=== PATIENT | male | born 1975 | race Caucasian/White ===

== ENCOUNTER 2018-02-27 10:52 | Day surgery (SDC) | payer OTHER, SELFPAY ==
[2018-02-19 09:26] VITALS: BP 133/76; PULSE 74; RESP 16; TEMP 36.7; O2SAT 96; BMI 27.4
--- NOTE | 2018-02-19 09:33 | EKG12_ITS ---
Test Reason : Blood Pressure : / mmHG Vent. Rate : 068 BPM Atrial Rate : 068 BPM P-R Int : 122 ms QRS Dur : 078 ms QT Int : 404 ms P-R-T Axes : 010 001 021 degrees QTc Int : 429 ms Normal sinus rhythm Normal ECG No previous ECGs available Confirmed by CORNEL SOLANO ([id number]), research editor PUMA SALGADO ([id number]) on 02/24/2018 2:52:39 PM Referred By: Lito Galo Confirmed By:CORNEL SOLANO
[2018-02-19 09:56] LABS: Absolute Lymphocyte Count 2.82 X10^3/ul (0.83-4.51); Absolute Neutrophil Count 3.2 X10^3/uL (2.0-7.7); Basophil# 0.02 X10^3/uL; Basophil% 0.3 % (0-1); Eosinophil# 0.07 X10^3/uL; Eosinophils% 1.1 % (0-5); Hematocrit 42.6 % (40-54); Hemoglobin 14.3 g/dl (13.0-16.5); Lymphocyte # 2.82 X10^3/ul (4.0); Lymphocyte % 43.7 % (19-41); Mean Corp Hgb Conc 33.6 g/gl (32-36); Mean Corpuscular Hgb 29.9 pg (27.0-32.0); Mean Corpuscular Volume 88.9 fL (80-94); Mean Platelet Vol. 10.3 fl (6.2-12.0); Monocyte# 0.37 X10^3/uL; Monocyte% 5.7 % (0-10); Neutrophil # 3.17 X10^3/uL (2.7-7.7); Neutrophil % 49.2 % (47-70); Platelet Count 199 K/mm3 (150-450); RBC Distribution Width CV 12.8 % (11.6-14.6); RBC Distribution Width SD 41.1 fl (35.1-43.9); Red Blood Count 4.79 M/mm3 (4.6-6.2); White Blood Count 6.5 K/mm3 (4.4-11.0)
[2018-02-19 10:01] LABS: POSITIVE COUNT NO; POSITIVE DIFFERENTIAL NO; POSITIVE MORPHOLOGY NO
[2018-02-27] VITALS (7 sets, daily range): BP systolic 108–134; BP diastolic 56–88; PULSE 53–77; RESP 16–18; TEMP 36.3–36.6; O2SAT 96–99; BMI 27.4
--- NOTE | 2018-02-27 | BLB_PTH ---
PATIENT: JAYSON GONZÁLES LOC: [facility] [place] U#:[id number] AGE/SX: 43/M ROOM: RE02/27/[address]: Dr. Lito Galo MD : 1975 BED: DIS: 02/27/2018 SPEC #: [id number] RECD: 02/27/18 14:53 STATUS: MARLYN JOSSELIN #: [id number] JOEY: 02/27/18 00:[address]: Lito Galo DEPT: SURGICAL PATHOLOGY RECD BY: Gideon Prescott ENTERED: 02/27/18 14:53 SP TYPE: TURB OTHR DR: Mary Delaney, GARNISHER-C Tissues: Urinary bladder, NOS Procedures: Surgery Specimen Level V HEADER OPERATION: Cysto, TUR bladder, Olympus PRE-OP DIAGNOSIS: Bladder cancer TISSUE SUBMITTED: Bladder tumor MICROSCOPIC DIAGNOSIS Bladder tumor, TUR: Papillary urothelial carcinoma. See cancer summary below. BLADDER CANCER (TUR) SUMMARY: Procedure - TURBT Histologic type ? urothelial (transitional cell) carcinoma Associated epithelial lesions ? none identified Histologic grade - urothelial carcinoma (WHO 2004/ISUP) - low grade (1/3) Tumor configuration - papillary Adequacy of material for determining muscularis propria invasion - muscularis propria (detrusor muscle) is not identified. Lymph-Vascular invasion - not identified Microscopic extent of tumor ? noninvasive papillary carcinoma Additional pathologic findings ? chronic inflammation. The above summary is in compliance with [employer] [place] [employer] (CAP) Cancer Protocols Checklist and [place] Joint Committee on Cancer (AJCC), Staging Manual, 8th Ed. JOCE:melvin 03/02/18 MICROSCOPIC DESCRIPTION Slides are reviewed. GROSS DESCRIPTION Received in fixative is one container labeled with the patient's name and designated bladder tumor. The specimen consists of multiple irregular fragments of light patel soft tissue that in aggregate measure 2.5 x 0.7 x 0.1 cm. The specimen is totally submitted in one cassette. / JOCE:melvin 02/27/18 TC:0 CPT: 64793
[2018-02-27] MEDS: Cefazolin 2 GM in 0.9% Normal Saline 100 ML IV (13:17)
--- NOTE | 2018-02-27 13:49 | PCM.DC.URO ---
Discharge Diet: Light diet - advance as tolerated Discharge Activity: Return to Normal Activity Call your doctor if your incision/area has: Continuous Slow Oozing, Sudden Increased Bleeding, Increased Pain/ Swelling, Increased Redness Suture Line Care: Avoid Pulling/Pushing, Avoid Pinching/Bending Allergies/Adverse Reactions: Allergies midazolam HCl [From Versed] Allergy (Verified 02/19/18 09:11) Unknown Medications to take at Discharge Ciprofloxacin [Cipro] 500 mg PO BID #6 tab 02/27/18 Hydrocodone/Acetaminophen [[place] 5-325 Tablet] 1 ea PO Q4H PRN PRN 5 Days #14 tab 02/27/18 The following prescriptions were given: Hydrocodone/Acetaminophen [[place] 5-325 Tablet] 1 ea PO Q4H PRN PRN 5 Days #14 tab PRN Reason: Pain Ciprofloxacin [Cipro] 500 mg PO BID #6 tab Primary Care Physician: Mary Delaney NP-C [Primary Care Provider] - Please Follow Up With: Lito Galo MD When: March 12 at 10:30 am
--- NOTE | 2018-02-27 13:50 | PCM.OPRPT ---
Report of Operation Date of Procedure: 02/27/18 Pre-Operative Diagnosis: Bladder cancer, large lateral wall, 2.5 cm Post-Operative Diagnosis: Same Surgery/Procedure Performed:: Transurethral resection of medium-sized bladder tumor, instillation of mitomycin-C Description of Surgical Findings:: 43-year-old male taken back to the operating room after smooth induction of general anesthesia he was placed supine on the table penis and testicles were prepped and draped in usual sterile fashion. Went into the bladder with a 21 [place] 30? lens and also 70? lenses a complete inspection of the bladder with both the lenses identified a tumor on the lateral wall the bladder on the left lateral wall right above the left ureteral orifice. I then switched over to the [address] [place] noncontinuous flow resectoscope and used bipolar cautery to resect this tumor he did require succinylcholine for neuromuscular blockade during resection to avoid a reflux in the non acoustic operator nerve. After resecting the tumor completely appear to be noninvasive I then cauterized the base extensively the ureteral orifice was not involved both orifices were clear Ellik out the tumor and handed off as specimen then placed the catheter in the bladder and instilled 50 cc of mitomycin-C into the bladder. Patient's anesthetic was reversed taken back to PACU in good condition and to see him back in a few weeks. Type of Anesthesia:: General Drains: none - Admit VTE Documentation VTE Present on Admission: No VTE Mechan Device Prophylaxis: SCD's VTE Pharm Prophylaxis ordered?: No Reason prophylaxis not ordered:: Treatment Not Indicated
== END 2018-02-27 15:08 | disposition home or self-care (01) ==
LOC: SDC 10:53 → AC 10:54
PROVIDERS: Anesthesiology; Family Provider Nurse Practitioner Primary Care; PCP Nurse Practitioner Primary Care; Visit Provider Urology
PROC: 0TBB8ZZ Excision of Bladder, Via Natural or Artificial Opening Endoscopic (ICD-10-PCS; CPT 51720; principal; 2018-02-27 12:55)
DX: C67.2 Malignant neoplasm of lateral wall of bladder (principal); F32.9 Major depressive disorder, single episode, unspecified; F41.9 Anxiety disorder, unspecified; F17.210 Nicotine dependence, cigarettes, uncomplicated; Z87.442 Personal history of urinary calculi
CPT/HCPCS: 00912; 51720; 52235; 85025; 88307; J7120; J2405; J3490; J9280

== ENCOUNTER 2018-03-08 00:09 | Emergency (ER) | payer OTHER, SELFPAY ==
[2018-03-08 00:10] VITALS: BP 134/78; PULSE 89; RESP 16; TEMP 36.9; O2SAT 99; BMI 27.0
--- NOTE | 2018-03-08 00:26 | ED.VISSUMM ---
- ER Visit Summary Date of Service: 03/08/18 Chief Complaint: Pain with urination History of Present Illness: The patient is a 43 M 1 week ago had a cystoscopy done by Dr. Carlos alcala of urology. They incidentally found a bladder cancer which they removed. He has had chemo washings of his bladder. States the first few days he had blood some pain but is done much better. Today he had pain with urination but did not notice any blood. He said the pains as bad as it was the day after surgery. He denies any fever. He is able to urinate but states that he does not feel like he is emptying his bladder. He had none of these symptoms previously. He denies any fever or vomiting. Physical Examination: Well-appearing middle-age male. Vital signs are stable afebrile. No distress. H EENT exam unremarkable. Lungs clear to auscultation. Heart regular rhythm no murmur. Abdomen is soft minimal suprapubic tenderness. No masses. No hernias. External exam is unremarkable. Circumcised male. No gross blood. No penile or scrotal or testicular tenderness or masses. No swelling. Moving all 4 extremities. No edema. No back pain. No CVA tenderness. Neurologically is awake and alert. Test Results: Urinalysis shows greater than or red blood cells but otherwise unremarkable with no nitrates or bacteria no signs of infection. After he urinated his post void residual was only 28 cc. He stated that it hurt more to stop pain and it actually did to void. Emergency Department Course and Treatment: Repeat exam he is doing well at 15 and will be discharged home. I will write him for Pyridium and to follow-up with Dr. Galo. Patient was placed on Pyridium for possible bladder spasms. Treatment Plan: Pyridium as needed. Disposition: Discharge Impression: Acute dysuria Status post cystoscopy and bladder cancer resection This note was generated with Sellaround dictation software. It may contain incorrect words, spelling, and punctuation that were not noted in review of the chart prior to signing ED Disposition - Plan for ED Patient: Chief Complaint: Complaint Referrals: Mary Delaney, ADEEL-C [Primary Care Provider] -
[2018-03-08 00:45] LABS: Bacteria 0 SEEN /hpf (None Seen); Mucous, Urine 0 SEEN /hpf (<or=2+); Squamous Epithelial Cells - UA 0 SEEN /hpf (0-5)
[2018-03-08 00:46] LABS: Color, Urine Yellow (Yellow); Glucose, Dipstick Normal (Normal); Ketone-Dipstick Negative (Negative); Leukocyte Esterase-Dipstick 100 /ul (Negative); Nitrite-Dipstick Negative (Negative); Occult Blood-Urine 250 /ul (Negative); Protein-Dipstick 100 mg/dl (Negative); Specific Gravity, Urine 1.025 (1.002-1.030); Urine Bilirubin Dipstick Negative (Negative); Urine Clarity Sl. Cloudy (Clear); Urine Urobilinogen 1 mg/dl (Normal)
[2018-03-08 00:56] LABS: White Blood Cells 0-5 SEEN /hpf (0-5)
[2018-03-08 00:57] LABS: Red Blood Cells-Urine > 100 SEEN /hpf (0-5)
--- NOTE | 2018-03-08 01:18 | ED.DEP ---
ED Disposition - Plan for ED Patient: Disposition: Home or Assisted Living Chief Complaint: Complaint Prescriptions: Phenazopyridine HCl [Pyridium] 200 mg PO TID PRN PRN #15 tab PRN Reason: Bladder Spasms Referrals: Lito Galo MD [STAFF PHYSICIAN] - As soon as possible Additional Instructions: Plenty of water. Pyridium as needed for bladder spasms Call follow-up with Dr. Burciaga. There are no signs of urinary tract infection. Or urinary retention.
[2018-03-08] MEDS: Phenazopyridine 95 MG Tablet 190 MG PO (01:27)
[2018-03-08 01:29] VITALS: RESP 16
== END 2018-03-08 01:29 | disposition home or self-care (01) ==
PROVIDERS: Emergency Provider Emergency Medicine; Family Provider Nurse Practitioner Primary Care; PCP Nurse Practitioner Primary Care
DX: R30.0 Dysuria (principal); R19.7 Diarrhea, unspecified; Z85.51 Personal history of malignant neoplasm of bladder; Z72.0 Tobacco use
CPT/HCPCS: 81001; 99283

== ENCOUNTER → 2019-07-26 08:46 | Outpatient (CLI) | payer BC, SELFPAY ==
--- NOTE | 2019-07-26 08:50 | US_ITS ---
STUDY: SOFT TISSUED OF THE NECK ULTRASOUND REASON FOR EXAM: Male, 44 years old. Cervical lymphadenopathy TECHNIQUE: Ultrasound evaluation of the soft tissue neck was performed with real-time and static elmore-scale imaging. COMPARISON: None. FINDINGS: There are right-sided submandibular nodes with the largest measuring 2.4 x 1.9 cm. There are left-sided submandibular nodes with the largest measuring 2.4 x 1.5 cm. There is no fluid collection identified. US/Head/Neck Soft Tissue IMPRESSION: Bilateral submandibular lymphadenopathy. Further evaluation with CT is recommended. Electronically Signed: Anson Sung, at 17:08 EDT Tel , Service support ,
--- NOTE | 2019-07-26 09:20 | RAD_ITS ---
STUDY: X-RAY - ESOPHAGUS (BARIUM SWALLOW) WITH FLUOROSCOPY REASON FOR EXAM: Male, 44 years old. Dysphasia. Tightness. TECHNIQUE: 12 view(s) of the esophagus were obtained following swallowing of barium. FLUOROSCOPY TIME (if supplied): (0:26) minutes/seconds COMPARISON: None. FINDINGS: There is no demonstrated esophageal foreign body. There is no demonstrated stricture or mucosal abnormality. Normal gastroesophageal junction, without a demonstrated hiatal hernia. The patient ingest a 12 mm tablet of barium without any difficulty. Normal visualized aortic arch and descending thoracic aorta. Normal visualized pulmonary parenchyma. Normal visualized osseous structures of the thorax. RAD/Esophagus Only IMPRESSION: Normal plain film x-ray examination (barium swallow) of the esophagus. Electronically Signed: Hector Ann, at 9:27 EDT , Service support ,
== END ==
PROVIDERS: Family Provider Nurse Practitioner Primary Care; PCP Nurse Practitioner Primary Care; Referring Provider Otolaryngology; Visit Provider Otolaryngology
DX: R13.10 Dysphagia, unspecified (principal); R59.0 Localized enlarged lymph nodes
CPT/HCPCS: 74220; 76536

== ENCOUNTER 2019-08-06 08:49 | Day surgery (SDC) | payer BC, SELFPAY ==
--- NOTE | 2019-08-06 | IMM_PTH ---
PATIENT: JAYSON GONZÁLES LOC: [facility] [place] U#:[id number] AGE/SX: 44/M ROOM: RE08/06/[address]: Dr. Jeffery Zavala MD : 1975 BED: DIS: 08/06/2019 SPEC #: [id number] RECD: 08/09/19 11:42 STATUS: MARLYN REQ #: [id number] JOEY: 08/06/19 00:[address]: Jeffery Zavala DEPT: IMMUNOHISTOCHEMISTRY RECD BY: Anna Neumann ENTERED: 08/09/19 11:45 SP TYPE: IMMUNO OTHR DR: Mary Delaney, CODING TECHNICIAN-C Tissues: Lymph node of neck, NOS Procedures: BCL-2 (add) BCL-6 (add) CD10 (add) CD20 (add) CD23 (add) CD43 (add) CD45 (add) CD5 (add) CD79A (add) CYCLIN (add) KI-67 (add) CD3 (initial) PHYSICIAN & [address] [address] SPECIMEN INFORMATION: Tissue Source: Cervical lymph node Clinical Info: Cervical lymphadenopathy; dysphagia Specimen Number: [id number] #2 CPT code: 69438, 28446 x11 METHODOLOGY: Deparaffinized sections of prefer/formalin-fixed tissue or PAP/DQ stained slides are incubated with monoclonal/polyclonal antibodies/oligonucleotide probes. Localization is made via biotin free immunoperoxidase method. Appropriate controls are performed and reacted as expected. Results on target cell population are indicated in the following table: RESULTS: ANTIBODY / CLONE RESULT Block 2 CD3 (PS1) positive CD5 (SP10) positive CD20 (L26) positive CD79a (11E3) positive CD45 (RP2/18) positive BCL-2 (bcl-2/100/D5) positive ([facility] B-cell negative) CD23 (1B12) positive, focal CD10 (56C6) negative ([facility] B-cell positive) CD43 (L60) positive BCL-6 (VY558I/A8) negative ([facility] B-cell positive) Cyclin D1/BCL-1 (SP4) negative Ki-67 (30-9) positive, low (20-25%) These tests were developed and their performance characteristics determined by [facility]. They may not have been cleared or approved by the U.S. Food and Drug Administration. The FDA has determined that such clearance or approval is not necessary. The above immunohistochemical/dualISH markers are ordered and reviewed by the Pathologist. INTERPRETATION: Cervical lymph node, biopsy: Lymph node with paracortical hyperplasia with expansion of B-cells, favor atypical reactive process. This case is sent to [facility] for expert opinion and reviewed by Dr. Lundy and above diagnosis is rendered. This case has been reviewed in consultation with Dr. Garcia who concurs with the above diagnosis. SJ:melvin 08/17/19
--- NOTE | 2019-08-06 | LYMN_PTH ---
PATIENT: JAYSON GONZÁLES LOC: [facility] [place] U#:[id number] AGE/SX: 44/M ROOM: RE08/06/[address]: Dr. Jeffery Zavala MD : 1975 BED: DIS: 08/06/2019 SPEC #: [id number] RECD: 08/06/19 11:40 STATUS: MARLYN JOSSELIN #: [id number] JOEY: 08/06/19 00:[address]: Jeffery Zavala DEPT: SURGICAL PATHOLOGY RECD BY: Anna Neumann ENTERED: 08/06/19 12:13 SP TYPE: LYMPH NODE OTHR DR: Mary Delaney, NUTTER UP-C Tissues: LYMPH NODE BIOPSY Procedures: Frozen Section (charge) Surgery Specimen Level IV HEADER OPERATION: Radical neck biopsy excision lymph nodes, open deep cervical nodes, frozen PRE-OP DIAGNOSIS: Cervical lymphadenopathy; dysphagia TISSUE SUBMITTED: Cervical lymph node FROZEN SECTION DIAGNOSIS Cervical lymph node: Lymph node tissue. Negative for metastatic carcinoma. SJ:melvin 08/06/19 Case has been reviewed in consultation with Dr. Garcia who concurs with the above diagnosis. IDC:AM MICROSCOPIC DIAGNOSIS Cervical lymph node, biopsy: Lymph node with paracortical hyperplasia with expansion of B-cells, favor atypical reactive process. Flow cytometry study from [facility] shows no phenotypic evidence of non-Hodgkin lymphoma. See comment. SJ:melvin 08/17/19 COMMENT Immunohistochemistry ([id number]) supports the above diagnosis. [facility] expert opinion and reviewed by Dr. Lundy and above diagnosis is rendered. The complete consultation and flow cytometry report from [facility] is viewable in patient's EMR. Correlation with clinical findings and appropriate follow up are necessary. Case has been reviewed in consultation with Dr. Garcia who concurs with the above diagnosis. IDC:AM MICROSCOPIC DESCRIPTION Slides are reviewed. GROSS DESCRIPTION Received fresh for frozen section diagnosis labeled with the patient's name is a specimen designated cervical lymph node. The specimen consists of an ovoid to slightly regular piece of patel soft tissue consistent with lymph node measuring 3 x 2 x 0.7 cm. The specimen is bisected. One-half of the specimen is submitted for frozen section diagnosis. Four touch imprints are prepared, two stained with Diff-Quik and two stained with H & E. A section is submitted for flow cytometry study. The entire specimen is submitted in two cassettes as follows: 1 - frozen section, 2 - rest of the specimen. / JOCE:melvin 08/06/19 TC:5 CPT: 78936, 79390
[2019-08-06 09:09] VITALS: BP 121/85; PULSE 69; RESP 16; TEMP 36.3; O2SAT 99; BMI 26.9
[2019-08-06] MEDS: Lactated Ringers 1,000 ML 100 ML IV (09:16)
--- NOTE | 2019-08-06 11:52 | OP.PCM_ITS ---
Problem List (1) Anterior cervical lymphadenopathy Status: Acute Report of Operation Date of Procedure: 08/06/19 Pre-Operative Diagnosis: Enlarged cervical lymph nodes, dysphagia, h/o bladder CA Post-Operative Diagnosis: Same Surgery/Procedure Performed:: Biopsy deep cervical lymph node left Description of Surgical Findings:: Bairon is a 44-year-old male with a history of bladder cancer and complaints of dysphagia who was found clinically to have bilateral cervical lymphadenopathy. Given his history pain complaints and these findings biopsy was advised for definitive evaluation and he was agreeable to proceed. The risks, alternatives, potential complications, and benefits were discussed at length and any questions answered to the patient and/or caregiver's satisfaction. Witnessed informed consent was obtained in the office, and the patient and/or caregiver was agreeable to proceed. Procedure went as follows: The patient was identified in preoperative holding and brought to the operating room where he was placed under general anesthesia and intubated. When appropriate anesthesia was obtained, the left neck was prepped and draped in usual sterile fashion. The planned incision site was then injected with 1% lidocaine with 100,000 epinephrine for a total of 2 cc. After allowing for vasoconstriction, a skin incision 2 fingerbreadths below the angle of the mandible was then created to 15 blade scalpel through the skin subcutaneous tissues and platysma. Dissection was then carried out along the sternocleidomastoid where overlying the vascular sheath was noted to be a large firm lymph node approximately 2 x 3 cm in size. This was matted to the surrounding tissue and was dissected free using bipolar cautery for hemostasis. This was then sent for pathologic specimen. The wound was then closed deeply with interrupted 3-0 Vicryl sutures closing the space and reapproximating the platysma and subcutaneous tissues. A running 5-0 Monocryl subcuticular sti tch was then placed to close the skin followed by Cavilon and Steri-Strips. The patient was then returned to anesthesia where he was revived and extubated without complication having tolerated the procedure well. Type of Anesthesia:: General Anesthesiologist: Saurabh Hernanedz Special Medications: none Specimen's removed: left cervical lymph node Drains: none Estimated Blood Loss (mL): 0 mL Fluids Replaced: 800 mL Grafts/Implants Used: none - Complications none - Admit VTE Documentation VTE Present on Admission: No VTE Mechan Device Prophylaxis: SCD's VTE Pharm Prophylaxis ordered?: No
--- NOTE | 2019-08-06 12:01 | PCM.DC ---
- Discharge Diagnoses Current Active Problems: Current Active and Chronic Problems Anterior cervical lymphadenopathy (Acute) You will use the following diet at home:: No restrictions Discharge Activity: Return to Normal Activity Call your doctor if your incision/area has: Increased Pain/ Swelling, Swelling at the incision site Call your doctor if you observe: Fever of 101 or Higher, Uncontrolled pain Allergies/Adverse Reactions: Allergies midazolam HCl [From Versed] Allergy (Verified 08/06/19 09:06) Unknown steroid Adverse Reaction (Uncoded 08/06/19 09:06) oral steroids/anxious and upset Medications to take at Discharge Fluticasone 0.05% [Flonase Nasal [place]] 1 spray NASAL DAILY 08/02/19 Paroxetine HCl [Paxil] 10 mg PO BID 08/02/19 Primary Care Physician: Mary Delaney NP-C [Primary Care Provider] - Test Results: Test results from this visit will be discussed in further detail at your follow-up appointment, if applicable. Please Follow Up With: Jeffery Zavala MD When: 2 weeks
[2019-08-06 12:03] VITALS: BP 121/85; BP 123/77; PULSE 80; RESP 16; TEMP 36.4; O2SAT 95
[2019-08-06 12:15] VITALS: BP 121/85; BP 99/68; PULSE 76; RESP 16; O2SAT 95
[2019-08-06 12:25] VITALS: BP 111/79; BP 121/85; PULSE 79; RESP 16; O2SAT 99
[2019-08-06 12:31] VITALS: BP 121/85; BP 97/81; PULSE 74; RESP 16; TEMP 36.3; O2SAT 100
[2019-08-06 12:52] VITALS: BP 121/85
== END 2019-08-06 12:54 | disposition home or self-care (01) ==
LOC: SDC 08:50 → AC 08:50
PROVIDERS: Family Provider Nurse Practitioner Primary Care; PCP Nurse Practitioner Primary Care; Referring Provider Otolaryngology; Visit Provider Otolaryngology
PROC: (CPT 38724; principal; 2019-08-06 10:00)
DX: R59.0 Localized enlarged lymph nodes (principal); J31.0 Chronic rhinitis; R13.10 Dysphagia, unspecified; F32.9 Major depressive disorder, single episode, unspecified; G47.33 Obstructive sleep apnea (adult) (pediatric); F17.200 Nicotine dependence, unspecified, uncomplicated; Z79.899 Other long term (current) drug therapy; Z85.51 Personal history of malignant neoplasm of bladder
CPT/HCPCS: 00320; 38510; 88305; 88331; 88341; 88342; J7120; J2405

== ENCOUNTER → 2019-09-07 08:03 | Outpatient (CLI) | payer BC, SELFPAY ==
[2019-08-31 09:10] VITALS: BMI 28.8
--- NOTE | 2019-09-07 08:05 | CT_ITS ---
STUDY: CT SOFT TISSUE NECK WITH CONTRAST REASON FOR EXAM: Male, 44 years old. Cervical lymph nodes with prior resection on the left side. The patient has a history of bladder carcinoma. RADIATION DOSAGE (If Supplied By Facility): CTDIvol = ( 18.73 ) mGy, DLP = ( 579.90 ) mGycm TECHNIQUE: The patient was scanned in a multi-detector CT scanner. High resolution transaxial imaging was performed following intravenous administration of IV 75mL Isovue-300 75. Sagittal and coronal images were reconstructed. Individualized dose optimization techniques were used for this CT. COMPARISON: None. FINDINGS: Normal bilateral parotid glands. Normal bilateral cell attendant helper spaces. Normal bilateral parapharyngeal spaces. Normal bilateral carotid spaces. Normal bilateral sublingual and submandibular glands. Several small benign-appearing submental lymph nodes. Normal visualized nasopharynx. Normal retropharyngeal space. Normal perivertebral space. Normal visualized bilateral faucial tonsils. The visualized tongue, tongue base and oropharynx are normal. There are minimally enlarged lymph nodes of the neck, with preservation of normal jonn architecture, consistent with a reactive lymph hyperplasia. The largest lymph node in the right-sided the neck measures 1.25 cm. The largest on the left side measures 1 cm. There is no demonstrated solid or cystic mass lesion. There is no abnormal contrast enhancement. Normal epiglottis, bilateral vallecula and hypopharynx. The pre-epiglottic and paraglottic adipose spaces are normal. Normal visualized bilateral piriform sinuses, aryepiglottic folds, vocal cords, and arytenoid-cricoid articulations. Normal subglottic trachea. Normal bilateral lobes of the thyroid gland. Normal visualized pulmonary apices. Normal visualized paranasal sinuses. Prior anterior fusion at the C5-C6 and C6-C7 levels. CT/Soft Tissue Neck WITH Contrast IMPRESSION: Not enlarged benign appearing cervical lymph nodes. Electronically Signed: Hector Ann, at 10:16 EST , Service support ,
== END ==
PROVIDERS: Family Provider Student in an Organized Health Care Education/Training Program; PCP Student in an Organized Health Care Education/Training Program; Referring Provider Internal Medicine Hematology & Oncology; Visit Provider Internal Medicine Hematology & Oncology
DX: R59.1 Generalized enlarged lymph nodes (principal); R59.0 Localized enlarged lymph nodes
CPT/HCPCS: 70491; Q9967

== ENCOUNTER → 2020-01-21 07:50 | Outpatient (CLI) | payer OTHER, SELFPAY ==
[2019-09-14 10:58] VITALS: BMI 28.7
--- NOTE | 2020-01-21 07:52 | CT_ITS ---
STUDY: CT CHEST WITH CONTRAST REASON FOR EXAM: Male, 45 years old. LUNG NODULE F/U, HX BLADDER CANCER RADIATION DOSAGE (If Supplied By Facility): CTDIvol = ( 11.73 ) mGy, DLP = ( 347.07 ) mGycm TECHNIQUE: Transaxial imaging was performed following intravenous administration of IV 100mL Isovue-300. Multiplanar coronal and sagittal images were reformatted. Individualized dose optimization techniques were used for this CT. COMPARISON: Comparison is made with prior outside examination dated July 02, 2019. FINDINGS: Stable small benign appearing bilateral axillary lymph nodes. The previously seen nodule in the peripheral aspect of the lateral aspect of the right lower lobe has slightly decreased in size. It presently measures 6.4 mm. This is seen on axial image #70. Stable appearance of the mild degree of increased markings at the lung bases suggestive of scarring. There is no demonstrated pleural abnormality. Normal heart and pericardium. Normal mediastinum. Normal hilar regions. Normal enhanced pulmonary arteries. Normal aorta arch and descending thoracic aorta. Normal osseous structures. The patient is status post cholecystectomy. CT/Chest WITH Contrast IMPRESSION: Decreased size of the previously seen nodular density in the lateral posterior aspect of the right lower lobe presently measuring 6.4 mm. Stable mild increased markings at the lung bases suggestive of atelectasis and/or scarring. Electronically Signed: Hector Ann, at 8:47 EDT , Service support ,
[2020-01-21 08:06] LABS: CREATININE FINGERSTICK 1.3 mg/dL (0.70-1.30); EGFR FINGERSTICK > 60.0000 mL/min (>60)
== END ==
PROVIDERS: PCP Student in an Organized Health Care Education/Training Program; Referring Provider Internal Medicine Hematology & Oncology; Visit Provider Internal Medicine Hematology & Oncology
DX: R91.8 Other nonspecific abnormal finding of lung field (principal)
CPT/HCPCS: 71260; Q9967

== ENCOUNTER → 2020-05-20 13:00 | Outpatient (CLI) | payer OTHER, SELFPAY ==
[2020-01-25 09:02] VITALS: BMI 29.9
[2020-05-21 06:33] LABS: SARS-COV-2 TOTAL ABS Nonreactive (Nonreactive)
== END ==
PROVIDERS: PCP Student in an Organized Health Care Education/Training Program; Visit Provider Student in an Organized Health Care Education/Training Program
DX: R05 Cough (principal)
CPT/HCPCS: 36415; 86769

== ENCOUNTER → 2020-09-27 10:14 | Outpatient (CLI) | payer SELFPAY ==
[2020-01-25 09:02] VITALS: BMI 29.9
[2020-09-27 11:23] LABS: EXAGEN MAILED SPECIMEN
[2020-09-27 12:31] LABS: Color, Urine Yellow (Yellow); Glucose, Dipstick Normal (Normal); Ketone-Dipstick Negative (Negative); Leukocyte Esterase-Dipstick Negative /ul (Negative); Nitrite-Dipstick Negative (Negative); Occult Blood-Urine Negative /ul (Negative); Protein-Dipstick Negative (Negative); Specific Gravity, Urine 1.015 (1.002-1.030); Urine Bilirubin Dipstick Negative (Negative); Urine Clarity Sl. Cloudy (Clear); Urine Urobilinogen Normal (Normal)
[2020-09-27 12:42] LABS: Absolute Lymphocyte Count 5.25 X10^3/uL (0.83-4.51); Absolute Neutrophil Count 4.7 X10^3/uL (2.0-7.7); Basophil# 0.06 X10^3/uL; Basophil% 0.5 % (0-1); Eosinophil# 0.14 X10^3/uL; Eosinophils% 1.3 % (0-5); Hematocrit 48.9 % (40-54); Hemoglobin 16.5 g/dL (13.0-16.5); Lymphocyte # 5.25 X10^3/ul (4.0); Lymphocyte % 47.5 % (19-41); Mean Corp Hgb Conc 33.7 g/dL (32-36); Mean Corpuscular Hgb 30.8 pg (27.0-32.0); Mean Corpuscular Volume 91.4 fL (80-94); Mean Platelet Vol. 10.4 fl (6.2-12.0); Monocyte# 0.87 X10^3/uL; Monocyte% 7.9 % (0-10); NRBC Flagged by Analyzer 0 % (0-5); Neutrophil % 42.4 % (47-70); POSITIVE DIFFERENTIAL YES; Platelet Count 269 K/mm3 (150-450); RBC Distribution Width CV 13.3 % (11.6-14.6); RBC Distribution Width SD 44.9 fl (35.1-43.9); Red Blood Count 5.35 M/mm3 (4.6-6.2); White Blood Count 11.1 K/mm3 (4.4-11.0)
[2020-09-27 12:47] LABS: Differential Indicated SCAN CRITERIA MET
[2020-09-27 13:08] LABS: Protein, Urine (Random) < 6.0 mg/dL (<11.9)
[2020-09-27 13:26] LABS: AST(SGOT) 56 U/L (15-37); Alanine Aminotransfer ALT/SGPT 100 U/L (16-61); Albumin, Serum 3.7 g/dL (3.2-5.0); Alkaline Phosphatase 106 U/L (45-117); Anion Gap 8 (5-15); BUN 7 mg/dL (7-18); BUN/Creat Ratio 6.4 RATIO (10-20); Calcium,Total 8.8 mg/dL (8.5-10.1); Chloride 107 mmol/L (98-107); EST Glomerular Filtration Rate 76 mL/min (>60); Est Glom Filt Rate - Afr Amer 92 mL/min (>60); Globulin 3.7 g/dL (2.2-4.2); Glucose 108 mg/dL (74-106); Potassium 3.8 mmol/L (3.5-5.1); Protein, Total 7.4 g/dL (6.4-8.2); Sodium Level 138 mmol/L (136-145)
== END ==
PROVIDERS: PCP Student in an Organized Health Care Education/Training Program; Referring Provider Internal Medicine Rheumatology; Visit Provider Internal Medicine Rheumatology
DX: M06.4 Inflammatory polyarthropathy (principal); R76.8 Other specified abnormal immunological findings in serum; M47.897 Other spondylosis, lumbosacral region; M47.892 Other spondylosis, cervical region; E03.9 Hypothyroidism, unspecified; G43.909 Migraine, unspecified, not intractable, without status migrainosus; Z85.51 Personal history of malignant neoplasm of bladder
CPT/HCPCS: 36415; 80053; 81002; 82570; 84156; 85025

== ENCOUNTER → 2020-11-29 15:32 | Outpatient (CLI) | payer SELFPAY ==
[2020-01-25 09:02] VITALS: BMI 29.9
--- NOTE | 2020-11-29 15:35 | RAD_ITS ---
STUDY: X-RAY CHEST REASON FOR EXAM: Male, 45 years old. RA TECHNIQUE: PA and lateral views of the chest. COMPARISON: None. FINDINGS: The lungs are clear and expanded. There is no demonstrated pleural abnormality. Normal size heart. Normal mediastinum and nabeel. Normal visualized pulmonary arteries. Normal visualized aortic arch and descending thoracic aorta. Normal visualized thoracic spine. Prior fusion of the lower cervical spine There is no demonstrated abnormality of the visualized soft tissue structures of the upper abdomen. RAD/Chest PA and Lateral IMPRESSION: Prior fusion of the lower cervical spine. Electronically Signed: Hector Ann MD at 15:55 EST , Service support ,
== END ==
PROVIDERS: PCP Student in an Organized Health Care Education/Training Program; Referring Provider Internal Medicine Rheumatology; Visit Provider Internal Medicine Rheumatology
DX: M06.09 Rheumatoid arthritis without rheumatoid factor, multiple sites (principal); R76.8 Other specified abnormal immunological findings in serum; M47.897 Other spondylosis, lumbosacral region; M47.892 Other spondylosis, cervical region; E03.9 Hypothyroidism, unspecified; G43.909 Migraine, unspecified, not intractable, without status migrainosus; Z85.51 Personal history of malignant neoplasm of bladder
CPT/HCPCS: 71046